=== PATIENT | male | born 1995 | race Caucasian/White ===

== ENCOUNTER 2024-08-08 08:12 | Inpatient (IN) ==
[2024-08-08 08:55] LABS: Basophils # (auto) 0.06 K/uL (0.00-0.20); Basophils % (auto) 0.6 %; Eosinophils # (auto) 0.11 K/uL (0.00-0.50); Eosinophils % (auto) 1.1 %; Hematocrit (blood only) 43.4 % (42.0-52.0); Hemoglobin 14.5 g/dl (14.0-18.0); Immature Granulocytes # (auto) 0.05 K/uL (0.01-0.20); Immature Granulocytes % (auto) 0.5 %; Lymphocytes # (auto) 3.52 K/uL (1.20-3.40); Lymphocytes % (auto) 36.3 %; Mean Corpuscular Hemoglobin 28.4 pg (25.0-34.0); Mean Corpuscular Hgb Conc 33.4 g/dL (32.0-36.0); Mean Corpuscular Volume 85.1 fL (80.0-100.0); Monocytes # (auto) 0.94 K/uL (0.11-0.59); Monocytes % (auto) 9.7 %; Neutrophils # (auto) 5.03 K/uL (1.40-6.50); Neutrophils % (auto) 51.8 %; Platelet Count 393 K/uL (130-400); RDW Coefficient of Variation 12.6 % (11.5-14.5); RDW Standard Deviation 38.8 fL (36.4-46.3); White Blood Count 9.71 K/ul (4.8-10.8)
--- NOTE | 2024-08-08 08:57 | XRay Report ---
XR chest 1V portable CLINICAL HISTORY: Chest pain, nonspecific COMPARISON STUDY: None FINDINGS: Heart size and pulmonary vasculature are normal. No effusion, consolidation, or pneumothora x. IMPRESSION: No acute findings. ACT 112: Negative or not required by law. Electronically signed by: Nima Rain M.D. 08/08/2024 8:56 AM
[2024-08-08 09:12] LABS: BUN Creatinine Ratio 14.3 (10-20); Calcium 9.1 mg/dl (8.6-10.3); Creatinine Clr Calc Pharmacy 211.8 ml/min; Potassium 4.5 mmol/L (3.5-5.1)
--- NOTE | 2024-08-08 09:27 | Emergency Department Note ---
History of Present Illness General Chief Complaint: Chest Pain Stated Complaint: CHEST PAIN Time Seen by Provider: 08/08/24 08:28 History of Present Illness Provider Complaint: chest pain Onset (ago): day(s) 2 Duration: constant Onset: during rest Pain Location: substernal Severity: moderate Maximum Pain Intensity: 0 Quality: + heaviness Relieved By: + nothing Exacerbated By: + nothing Context: no recent illness, no recent surgery, no recent immobilization, no recent travel, no trauma/injury, no new medications or no history of DVT/PE Associated symptoms: no nausea, no vomiting, no dyspnea, no syncope, no palpitations, no fever or no cough Home Medications Medication Instructions Recorded Confirmed Type No Known Home Medications 08/08/24 08/08/24 History Allergies Allergy/AdvReac Type Severity Reaction Status Date / Time Penicillins Allergy Mild RASH Unverified 09/14/09 16:21 Past Med/Surg History Problem List (Updated 08/08/24 @ 12:15 by aRmos Oliveros MD) Non-ST elevation [place] (NSTEMI) (Acute) Social History Smoking Status: Never smoker Preferred Language: Tanzanian Feels Safe at Home: Yes Physical Exam Vital Signs Vital Signs - 24 hr 08/08/24 08:19 08/08/24 08:28 08/08/24 08:35 Temperature 36.3 C L Temperature Source Temporal Artery Scan Pulse Rate 103 H 103 H Pulse Rate [Apical] Pulse Rate from SpO2 Sensor Pulse Rhythm Regular Regular Pulse Rhythm [Apical] Pulse Strength Normal Respiratory Rate 16 16 Respiratory Effort / Characteristics Non-Labored Spontaneous Non-Labored Spontaneous Respiratory Depth Normal Normal Respiratory Pattern Regular Blood Pressure 186/115 H Blood Pressure [Right Arm] Blood Pressure Mean 138 Blood Pressure Mean [Right Arm] Blood Pressure Position Sitting Pulse Oximetry 96 96 Oxygen Delivery Method Room Air Room Air Room Air Sepsis Recent Fever Within 48 Hours No Sepsis New/Unexplained Change in Mental Status N/A Sepsis Action Taken by Nursing No Action Required 08/08/24 08:46 08/08/24 09:39 08/08/24 10:00 Temperature Temperature Source Pulse Rate 103 H 88 Pulse Rate [Apical] 97 H Pulse Rate from SpO2 Sensor 88 Pulse Rhythm Pulse Rhythm [Apical] Regular Pulse Strength Respiratory Rate 16 16 Respiratory Effort / Characteristics Non-Labored Respiratory Depth Normal Respiratory Pattern Regular Blood Pressure 152/76 H Blood Pressure [Right Arm] 169/103 H Blood Pressure Mean 101 Blood Pressure Mean [Right Arm] 125 Blood Pressure Position Pulse Oximetry 95 95 Oxygen Delivery Method Room Air Room Air Sepsis Recent Fever Within 48 Hours Sepsis New/Unexplained Change in Mental Status Sepsis Action Taken by Nursing 08/08/24 10:30 08/08/24 11:00 Temperature Temperature Source Pulse Rate 93 H 88 Pulse Rate [Apical] Pulse Rate from SpO2 Sensor 93 H 89 Pulse Rhythm Pulse Rhythm [Apical] Pulse Strength Respiratory Rate 21 19 Respiratory Effort / Characteristics Respiratory Depth Respiratory Pattern Blood Pressure 174/90 H 170/93 H Blood Pressure [Right Arm] Blood Pressure Mean 103 118 Blood Pressure Mean [Right Arm] Blood Pressure Position Pulse Oximetry 94 95 Oxygen Delivery Method Room Air Sepsis Recent Fever Within 48 Hours Sepsis New/Unexplained Change in Mental Status Sepsis Action Taken by Nursing Physical Exam GENERAL: oriented to person, place, and time. appears well-developed and well- nourished. HENT: Exam performed. - Head: Normocephalic and atraumatic. EYES: Conjunctivae and EOM are normal. Right eye exhibits no discharge. Left eye exhibits no discharge. No scleral icterus. NECK: Normal range of motion. Neck supple. No JVD present. CV: Normal rate, regular rhythm, normal heart sounds and intact distal pulses. There is no peripheral edema. Palpable radial pulses bue. PULM/CHEST: Effort normal and breath sounds normal. No respiratory distress. No stridor. no wheezes. no rales. ABD: The abdomen is soft and morbidly obese. There is no tenderness. NEURO: Motor and sensation grossly intact. SKIN: Skin is warm and dry. He is diaphoretic. PSYCH: normal mood and affect. Behavior is normal. Judgment and thought content normal. Course Course 08: The patient was evaluated in room B11. A complete history and physical exam was performed Cardiac monitoring: An order was placed for continuous cardiac monitoring. The monitor shows a rate of 100 with sinus rhythm interpreted by me 0942: Vital signs stable. Patient currently reporting no chest pain. No diarrhea pheresis now. Patient was strongly recommended for inpatient observation for chest pain rule out ACS but adamantly declined. Will conduct delta troponin, if positive will admit. If no significant increase patient will be discharged to follow-up with outpatient cardiology. 1208: Vital signs stable. Patient reporting no chest pain at this time. Delta troponin is 59.5. Discussed case with Dr. Aranda on-call cardiology and we both agreed to start heparin on this patient for NSTEMI. [facility] who states he will admit the patient. Administered Medications Discontinued Medications Aspirin (Aspirin 81 Mg Chew) 324 mg PO NOW STA Stop: 08/08/24 11:40 Last Admin: 08/08/24 11:44 Dose: 324 mg Documented By: BEVERLY Medical Decision Making Laboratory Data Attestation: I reviewed the patient's lab results. 08/08/24 08:44 08/08/24 08:44 Labs: Lab Results 08/08/24 08/08/24 Range/Units 08:44 10:46 WBC 9.71 (4.8-10.8) K/ul RBC 5.10 (4.70-6.10) M/uL Hgb 14.5 (14.0-18.0) g/dl Hct 43.4 (42.0-52.0) % MCV 85.1 (80.0-100.0) fL MCH 28.4 (25.0-34.0) pg MCHC 33.4 (32.0-36.0) g/dL RDW Std Deviation 38.8 (36.4-46.3) fL RDW Coeff of Zackery 12.6 (11.5-14.5) % Plt Count 393 (130-400) K/uL MPV 10.0 (9.4-12.4) fL Immature Gran % (Auto) 0.5 % Neut % (Auto) 51.8 % Lymph % (Auto) 36.3 % Keith % (Auto) 9.7 % Eos % (Auto) 1.1 % Baso % (Auto) 0.6 % Neut # (Auto) 5.03 (1.40-6.50) K/uL Lymph # (Auto) 3.52 H (1.20-3.40) K/uL Keith # (Auto) 0.94 H (0.11-0.59) K/uL Eos # (Auto) 0.11 (0.00-0.50) K/uL Baso # (Auto) 0.06 (0.00-0.20) K/uL Immature Gran # (Auto) 0.05 (0.01-0.20) K/uL PT 9.8 (9.0-12.0) Seconds INR 0.9 (0.9-1.1) APTT 28 (21-31) Seconds PTT Ratio 1.0 D-Dimer 230 (0-500) ug/L FEU Sodium 138 (136-145) mmol/L Potassium 4.5 (3.5-5.1) mmol/L Chloride 104 (98-107) mmol/L Carbon Dioxide 29 (21-32) mmol/L Anion Gap 5 (3-11) BUN 11 (6-23) mg/dl Creatinine 0.77 (0.6-1.4) mg/dl Est Cr Clr Drug Dosing 211.8 ml/min eGFR 122.75 BUN/Creatinine Ratio 14.3 (10-20) Glucose 227 H (70-99(Fasting)) mg/dl Calcium 9.1 (8.6-10.3) mg/dl Troponin I High Sens 18.0 59.5 H* D (0-20) pg/ml Lipase 31 (11-82) U/L Imaging Data Chest x-ray: Attestation: I personally reviewed and interpreted this imaging study as follows: My impression: Chest x-ray negative. Airway clear. No pneumothorax. No consolidation. No cardiomegaly or cephalization.. No free air under the diaphragm. No fractures of the skeletal structures. Radiologist's impression: Chest X-Ray 08/08/24 08:28 XR chest 1V portable CLINICAL HISTORY: Chest pain, nonspecific COMPARISON STUDY: None FINDINGS: Heart size and pulmonary vasculature are normal. No effusion, consolidation, or pneumothorax. IMPRESSION: No acute findings. ACT 112: Negative or not required by law. Electronically signed by: Nima Rain M.D. 08/08/2024 8:56 AM ECG Data Attestation: I personally reviewed and interpreted this ECG as follows: Rate (beats per minute): 100 Rhythm: normal sinus Findings: no ST depression, no ST elevation or no prolonged QT MDM Narrative 0828: The patient was evaluated in room B11. A complete history and physical exam was performed Cardiac monitoring: An order was placed for continuous cardiac monitoring. The monitor shows a rate of 100 with sinus rhythm interpreted by me 0942: Vital signs stable. Patient currently reporting no chest pain. No diarrhea pheresis now. Patient was strongly recommended for inpatient observation for chest pain rule out ACS but adamantly declined. Will conduct delta troponin, if positive will admit. If no significant increase patient will be discharged to follow-up with outpatient cardiology. 1208: Vital signs stable. Patient reporting no chest pain at this time. Delta troponin is 59.5. Discussed case with Dr. Aranda on-call cardiology and we both agreed to start heparin on this patient for NSTEMI. Discussed case with [facility] team Dr. Delgado who states he will admit the patient. Impression & Plan Non-ST elevation [place] (NSTEMI) Critical Care Time Critical Care Time: Yes Total Critical Care Time: 41 I have personally spent greater than 41 minutes of critical care time in the direct management of this patient. This includes bedside care, interpretation of diagnostic studies, and testing, discussion with consultants, patient, and family members, and other required patient management activities. This 41 minutes is in excess of all separately billable procedures. Discharge Plan Visit Data Chief Complaint: Chest Pain Stated Complaint: CHEST PAIN ED Provider: Ramos Oliveros Discharge Problem: Non-ST elevation [place] (NSTEMI) Patient Disposition: Admitted As Inpatient Forms Stand Alone Forms: [employer] Prescriptions Prescriptions: No Action No Known Home Medications Referrals Referrals: PCP,NO [Primary Care Provider] -
[2024-08-08 09:30] LABS: D Dimer 230 ug/L FEU (0-500); INR 0.9 (0.9-1.1); Partial Thromboplastin Time 28 Seconds (21-31); Prothrombin Time 9.8 Seconds (9.0-12.0)
--- NOTE | 2024-08-08 11:16 | Electrocardiogram Report ---
Test Reason : Blood Pressure : */* mmHG Vent. Rate : 100 BPM Atrial Rate : 100 BPM P-R Int : 136 ms QRS Dur : 114 ms QT Int : 360 ms P-R-T Axes : 28 13 77 degrees QTcB Int : 464 ms Normal sinus rhythm Incomplete right bundle branch block Nonspecific ST and T wave abnormality Abnormal ECG No previous ECGs available Confirmed by Srini Mari ([id number]) on 08/08/2024 11:16:14 AM Referred By: REFERRED SELF Confirmed By: Srini Mari
[2024-08-08] MEDS: ASPIRIN 81 MG CHEW PO STA (11:44)
[2024-08-08] MEDS ORDERED: ACETAMINOPHEN 325 MG TAB PO PRN (12:18)
[2024-08-08] MEDS ORDERED: ZOLPIDEM TARTRATE 5 MG TAB PO PRN (12:18)
[2024-08-08] MEDS ORDERED: NITROGLYCERIN SL 0.4 MG/TAB TAB SL PRN (12:18)
--- NOTE | 2024-08-08 12:27 | History & Physical Report ---
Date of Service August 08, 2024 Assessment & Plan (1) Non-ST elevation [place] (NSTEMI): Plan #NSTEMI #Htn emergency vs. urgency -consult cardiology, thus far has indicated heparin ggt -stat EKG for new/changing cp -tele -nitro for chest pain -trend trops to peak -prn hydralazine >180/100 #Hyperglycemia -a1c, lipids IVF, cardiac diet, NPO at [place] On therapeutic a/c, SCDs History of Present Illness Primary Care Provider: NO PCP 29M pmh morbid obesity who presents to the ED with chest pain. Patient states 2 days ago he awoke with chest pain, which lasted around 1-5 minutes and self-resolved. This occured twice more in the last two days, once exertionally, another time non-exertionally and as a result he presented to the hospital. These episodes have never occured before, and he has never seen a knot saw operator before for any reason. He has no known fhx of cardiac dx, no current drug use. No palpitations, sob, fever, chills, other symptoms currently. Allergies Allergy/AdvReac Type Severity Reaction Status Date / Time Penicillins Allergy Mild RASH Unverified 09/14/09 16:21 Home Medications Medication Instructions Recorded Confirmed Type No Known Home Medications 08/08/24 08/08/24 History Past Med/Surg History Problem List (Updated 08/08/24 @ 12:15 by Ramos Oliveros MD) Non-ST elevation [place] (NSTEMI) (Acute) Social History Smoking Status: Never smoker Preferred Language: Malay Feels Safe at Home: Yes Review of Systems Constitutional: no fever and no chills Respiratory: no cough, no dyspnea and no pain on inspiration Cardiovascular: + chest pain and + chest pain at rest; n o dyspnea on exertion, no palpitations and no edema Physical Exam Constitutional: WD/WN, vitals as above Respiratory: normal respiratory effort, lungs clear to auscultation Cardiovascular: RRR, no murmur, no edema Results & Data Results & Data Vital Signs (Past 12 Hours) Vital Signs Temp Pulse Pulse Resp BP BP Pulse Ox 08/08/24 11:00 88 19 170/93 H 95 08/08/24 10:30 93 H 21 174/90 H 94 08/08/24 10:00 88 16 152/76 H 95 08/08/24 09:39 97 H 16 169/103 H 95 08/08/24 08:46 103 H 08/08/24 08:35 08/08/24 08:28 103 H 16 96 08/08/24 08:19 36.3 C L 103 H 16 186/115 H 96 O2 Del Method 08/08/24 11:00 Room Air 08/08/24 10:30 08/08/24 10:00 Room Air 08/08/24 09:39 Room Air 08/08/24 08:46 08/08/24 08:35 Room Air 08/08/24 08:28 Room Air 08/08/24 08:19 Room Air Laboratory Results Abnormal lab results 08/08/24 08/08/24 Range/Units 08:44 10:46 Lymph # (Auto) 3.52 H (1.20-3.40) K/uL [place] # (Auto) 0.94 H (0.11-0.59) K/uL Glucose 227 H (70-99(Fasting)) mg/dl Troponin I High Sens 59.5 H* D (0-20) pg/ml Diagnostic Findings Chest X-Ray 08/08/24 08:28 XR chest 1V portable CLINICAL HISTORY: Chest pain, nonspecific COMPARISON STUDY: None FINDINGS: Heart size and pulmonary vasculature are normal. No effusion, consolidation, or pneumothorax. IMPRESSION: No acute findings. ACT 112: Negative or not required by law. Electronically signed by: Nima Rain M.D. 08/08/2024 8:56 AM Code Status & VTE Plan VTE Prophylaxis Plan VTE Prophylaxis will be ordered: No Reason for no VTE drug order: Contraindicated
[2024-08-08] MEDS: SODIUM CHLORIDE 0.9% 1,000 ML IV SCH (12:45)
[2024-08-08] MEDS: HEPARIN 25000 UNIT/500 ML D5W 25,000 UNITS/500 ML BAG IV SCH (12:47)
[2024-08-08] MEDS: Heparin IV Adult Wt-Based Low-Dose w/ INITIAL Bolus Protocol IV STA (12:47)
[2024-08-08] MEDS: HEPARIN SOD (PORCINE) 1000 UNIT/ML IV ONE ×2 (12:47→20:03)
[2024-08-08] MEDS: hydrALAZINE HCL 20 MG/ML VIAL IV PRN (13:14)
[2024-08-08] MEDS ORDERED: hydrALAZINE HCL 20 MG/ML VIAL IV PRN (14:19)
[2024-08-08] MEDS: LOSARTAN POTASSIUM 50 MG TAB PO SCH (15:23)
[2024-08-08 19:21] LABS: ANTI-Xa, UFH(UnfractionatedHep < 0.10 IU/ml (0.3-0.7)
[2024-08-09] MEDS: HEPARIN SOD (PORCINE) 1000 UNIT/ML IV ONE ×3 (03:00→17:23)
[2024-08-09 06:15] LABS: Hematocrit (blood only) 42.1 % (42.0-52.0); Hemoglobin 13.9 g/dl (14.0-18.0); Mean Corpuscular Hemoglobin 28.3 pg (25.0-34.0); Mean Corpuscular Volume 85.7 fL (80.0-100.0); Mean Platelet Volume 10.2 fL (9.4-12.4); Platelet Count 341 K/uL (130-400); RDW Coefficient of Variation 12.9 % (11.5-14.5); RDW Standard Deviation 39.8 fL (36.4-46.3); Red Blood Count 4.91 M/uL (4.70-6.10)
[2024-08-09 06:33] LABS: Albumin Globulin Ratio 1.4 (0.9-2); Albumin Level 4.1 gm/dl (3.4-5.0); BUN Creatinine Ratio 15.4 (10-20); Bilirubin,Total 0.4 mg/dl (0.2-1.0); Calcium 8.9 mg/dl (8.6-10.3); Creatinine Clr Calc Pharmacy 253.1 ml/min; Total Protein 7.1 gm/dl (6.0-8.3)
[2024-08-09 06:43] LABS: Prothrombin Time 10.4 Seconds (9.0-12.0)
[2024-08-09 07:31] LABS: Estimated Average Glucose 146 mg/dl; Hemoglobin A1C 6.7 % (4.5-5.6)
[2024-08-09] MEDS: ASPIRIN 81 MG ECTAB PO SCH (08:07)
[2024-08-09] MEDS: ATORVASTATIN 40 MG TAB PO SCH (08:07)
[2024-08-09] MEDS: METOPROLOL SUCC 25MG EXT REL TAB PO SCH (08:07)
--- NOTE | 2024-08-09 08:49 | Hospitalist Progress Note ---
Date of Service August 09, 2024 Assessment & Plan (1) Non-ST elevation [place] (NSTEMI): Plan NSTEMI Htn emergency vs. urgency Pt was started on IV heparin in ED, will cont. started losartan for BP control started ASA, metoprolol, statin cont. to monitor closely on telemetry Currently pt is feeling well, chest pain free, no NORWOOD, no shortness of breath Cardiology consulted and discussed with, echo also obtained - per cardiology - " initial concern is that the patient has presented with hypertensive urgency. Troponin however is mildly elevated with relatively flat trend and he did however have chest discomfort. Will work on optimizing blood pressure prior to consideration of further ischemic workup." Hyperglycemia A1c 6.7% - will need to follow up as outpt, lipids LDL 130 - started on statin per cardiology DVT ppx - iv heparin Admission and Anticipated Discharge Date Admission Date: August 08, 2024 Subjective Pt seen in follow up of NSTEMI IV heparin started on admission Currently lying in bed in NAD currently denies any chest pain or shortness of breath, denies dizziness, palpitations, lightheadedness, no nausea, or abd. pain, no NORWOOD Pt's girlfriend present at the bedside Review of Systems Review of Systems: All systems reviewed & are unremarkable except as noted in Subjective Physical Exam Physical Exam: General: morbidly obese young M in NAD HEENT: NC/AT, EOMI, moist mucous membranes Lungs: clear to auscultation b/l, no wheezing Cardiac Exam: regular heart sounds, no murmurs, no jugular venous distention Abdomen: abdomen soft, non-tender, + obese Extremities: no LE edema, moves extremities Neuro: awake, alert, answers appropriately, no facial asymmetry, moves extremities Results & Data Results & Data Vital Signs (Past 12 Hours) Vital Signs Temp Pulse Pulse Resp BP BP Pulse Ox 08/09/24 07:59 36.5 C 80 20 181/81 H 97 08/09/24 07:12 66 08/09/24 05:15 85 08/09/24 02:32 36.5 C 70 18 131/66 95 08/08/24 22:38 36.7 C 83 18 173/90 H 94 O2 Del Method 08/09/24 07:59 Room Air 08/09/24 07:12 08/09/24 05:15 08/09/24 02:32 Room Air 08/08/24 22:38 Room Air Laboratory Results 08/09/24 08/09/24 08/08/24 Range/Units 05:22 01:18 18:30 WBC 9.60 (4.8-10.8) K/ul RBC 4.91 (4.70-6.10) M/uL Hgb 13.9 L (14.0-18.0) g/dl Hct 42.1 (42.0-52.0) % MCV 85.7 (80.0-100.0) fL MCH 28.3 (25.0-34.0) pg MCHC 33.0 (32.0-36.0) g/dL RDW Std Deviation 39.8 (36.4-46.3) fL RDW Coeff of Zackery 12.9 (11.5-14.5) % Plt Count 341 (130-400) K/uL MPV 10.2 (9.4-12.4) fL Immature Gran % (Auto) % Neut % (Auto) % Lymph % (Auto) % Martin % (Auto) % Eos % (Auto) % Baso % (Auto) % Neut # (Auto) (1.40-6.50) K/uL Lymph # (Auto) (1.20-3.40) K/uL Martin # (Auto) (0.11-0.59) K/uL Eos # (Auto) (0.00-0.50) K/uL Baso # (Auto) (0.00-0.20) K/uL Immature Gran # (Auto) (0.01-0.20) K/uL PT 10.4 (9.0-12.0) Seconds INR 1.0 (0.9-1.1) APTT (21-31) Seconds PTT Ratio D-Dimer (0-500) ug/L FEU Heparin Anti-Xa, Unfract 0.10 L < 0.10 L (0.3-0.7) IU/ml Sodium 139 (136-145) mmol/L Potassium 4.0 (3.5-5.1) mmol/L Chloride 103 (98-107) mmol/L Carbon Dioxide 30 (21-32) mmol/L Anion Gap 6 (3-11) BUN 10 (6-23) mg/dl Creatinine 0.65 (0.6-1.4) mg/dl Est Cr Clr Drug Dosing 253.1 ml/min eGFR 129.19 BUN/Creatinine Ratio 15.4 (10-20) Glucose 131 H (70-99(Fasting)) mg/dl Estimat Average Glucose 146 mg/dl Hemoglobin A1c 6.7 H (4.5-5.6) % Calcium 8.9 (8.6-10.3) mg/dl Total Bilirubin 0.4 (0.2-1.0) mg/dl AST 18 (13-39) U/L ALT 36 (7-52) U/L Alkaline Phosphatase 76 (34-104) U/L Troponin I High Sens (0-20) pg/ml Total Protein 7.1 (6.0-8.3) gm/dl Albumin 4.1 (3.4-5.0) gm/dl Globulin 3.0 (2.5-4.0) gm/dl Albumin/Globulin Ratio 1.4 (0.9-2) Triglycerides 231 H (0-150) mg/dl Cholesterol 211 H (0-200) mg/dl LDL Cholesterol, Calc 130 mg/dl VLDL Cholesterol, Calc 46 H (0-30) mg/dl HDL Cholesterol 35 mg/dl Cholesterol/HDL Ratio 6.0 H (0-5) Lipase (11-82) U/L 08/08/24 08/08/24 08/08/24 Range/Units 14:43 12:55 10:46 WBC (4.8-10.8) K/ul RBC (4.70-6.10) M/uL Hgb (14.0-18.0) g/dl Hct (42.0-52.0) % MCV (80.0-100.0) fL MCH (25.0-34.0) pg MCHC (32.0-36.0) g/dL RDW Std Deviation (36.4-46.3) fL RDW Coeff of Zackery (11.5-14.5) % Plt Count (130-400) K/uL MPV (9.4-12.4) fL Immature Gran % (Auto) % Neut % (Auto) % Lymph % (Auto) % Martin % (Auto) % Eos % (Auto) % Baso % (Auto) % Neut # (Auto) (1.40-6.50) K/uL Lymph # (Auto) (1.20-3.40) K/uL Martin # (Auto) (0.11-0.59) K/uL Eos # (Auto) (0.00-0.50) K/uL Baso # (Auto) (0.00-0.20) K/uL Immature Gran # (Auto) (0.01-0.20) K/uL PT (9.0-12.0) Seconds INR (0.9-1.1) APTT (21-31) Seconds PTT Ratio D-Dimer (0-500) ug/L FEU Heparin Anti-Xa, Unfract (0.3-0.7) IU/ml Sodium (136-145) mmol/L Potassium (3.5-5.1) mmol/L Chloride (98-107) mmol/L Carbon Dioxide (21-32) mmol/L Anion Gap (3-11) BUN (6-23) mg/dl Creatinine (0.6-1.4) mg/dl Est Cr Clr Drug Dosing ml/min eGFR BUN/Creatinine Ratio (10-20) Glucose (70-99(Fasting)) mg/dl Estimat Average Glucose mg/dl Hemoglobin A1c (4.5-5.6) % Calcium (8.6-10.3) mg/dl Total Bilirubin (0.2-1.0) mg/dl AST (13-39) U/L ALT (7-52) U/L Alkaline Phosphatase (34-104) U/L Troponin I High Sens 52.5 H* D 63.4 H* 59.5 H* D (0-20) pg/ml Total Protein (6.0-8.3) gm/dl Albumin (3.4-5.0) gm/dl Globulin (2.5-4.0) gm/dl Albumin/Globulin Ratio (0.9-2) Triglycerides (0-150) mg/dl Cholesterol (0-200) mg/dl LDL Cholesterol, Calc mg/dl VLDL Cholesterol, Calc (0-30) mg/dl HDL Cholesterol mg/dl Cholesterol/HDL Ratio (0-5) Lipase (11-82) U/L 08/08/24 Range/Units 08:44 WBC 9.71 (4.8-10.8) K/ul RBC 5.10 (4.70-6.10) M/uL Hgb 14.5 (14.0-18.0) g/dl Hct 43.4 (42.0-52.0) % MCV 85.1 (80.0-100.0) fL MCH 28.4 (25.0-34.0) pg MCHC 33.4 (32.0-36.0) g/dL RDW Std Deviation 38.8 (36.4-46.3) fL RDW Coeff of Zackery 12.6 (11.5-14.5) % Plt Count 393 (130-400) K/uL MPV 10.0 (9.4-12.4) fL Immature Gran % (Auto) 0.5 % Neut % (Auto) 51.8 % Lymph % (Auto) 36.3 % Martin % (Auto) 9.7 % Eos % (Auto) 1.1 % Baso % (Auto) 0.6 % Neut # (Auto) 5.03 (1.40-6.50) K/uL Lymph # (Auto) 3.52 H (1.20-3.40) K/uL Martin # (Auto) 0.94 H (0.11-0.59) K/uL Eos # (Auto) 0.11 (0.00-0.50) K/uL Baso # (Auto) 0.06 (0.00-0.20) K/uL Immature Gran # (Auto) 0.05 (0.01-0.20) K/uL PT 9.8 (9.0-12.0) Seconds INR 0.9 (0.9-1.1) APTT 28 (21-31) Seconds PTT Ratio 1.0 D-Dimer 230 (0-500) ug/L FEU Heparin Anti-Xa, Unfract (0.3-0.7) IU/ml Sodium 138 (136-145) mmol/L Potassium 4.5 (3.5-5.1) mmol/L Chloride 104 (98-107) mmol/L Carbon Dioxide 29 (21-32) mmol/L Anion Gap 5 (3-11) BUN 11 (6-23) mg/dl Creatinine 0.77 (0.6-1.4) mg/dl Est Cr Clr Drug Dosing 211.8 ml/min eGFR 122.75 BUN/Creatinine Ratio 14.3 (10-20) Glucose 227 H (70-99(Fasting)) mg/dl Estimat Average Glucose mg/dl Hemoglobin A1c (4.5-5.6) % Calcium 9.1 (8.6-10.3) mg/dl Total Bilirubin (0.2-1.0) mg/dl AST (13-39) U/L ALT (7-52) U/L Alkaline Phosphatase (34-104) U/L Troponin I High Sens 18.0 (0-20) pg/ml Total Protein (6.0-8.3) gm/dl Albumin (3.4-5.0) gm/dl Globulin (2.5-4.0) gm/dl Albumin/Globulin Ratio (0.9-2) Triglycerides (0-150) mg/dl Cholesterol (0-200) mg/dl LDL Cholesterol, Calc mg/dl VLDL Cholesterol, Calc (0-30) mg/dl HDL Cholesterol mg/dl Cholesterol/HDL Ratio (0-5) Lipase 31 (11-82) U/L Medications Administered Current Inpatient Medications Acetaminophen (Acetaminophen 325 Mg Tab) 650 mg PO Q4H PRN PRN Reason: Pain or Fever Stop: 09/07/24 12:17 Aspirin (Aspirin 81 Mg Ectab) 81 mg PO [facility] Stop: 09/08/24 08:59 Last Admin: 08/09/24 08:07 Dose: 81 mg Atorvastatin Calcium (Atorvastatin 40 Mg Tab) 40 mg PO [facility] Stop: 09/08/24 08:59 Last Admin: 08/09/24 08:07 Dose: 40 mg Hydralazine HCl (Hydralazine Hcl 20 Mg/Ml Vial) 10 mg IV Q4H PRN PRN Reason: hypertension Stop: 09/07/24 14:18 Heparin Sodium/Dextrose (Heparin 45404 Unit/500 Ml D5w) 25,000 units in 500 mls @ 30 mls/hr IV .[id number] [facility]; Protocol Stop: 09/07/24 12:14 Last Admin: 08/09/24 08:06 Dose: 1,500 units/hr, 30 mls/hr Losartan Potassium (Losartan Potassium 50 Mg Tab) 50 mg PO [facility] Stop: 09/07/24 14:29 Last Admin: 08/09/24 08:06 Dose: 50 mg Metoprolol Succinate (Metoprolol Succ 25mg Ext Rel Tab) 25 mg PO QAM CINTHIA Stop: 09/08/24 08:59 Last Admin: 08/09/24 08:07 Dose: 25 mg Nitroglycerin (Nitroglycerin Sl 0.4 Mg/Tab Tab) 0.4 mg SL Q5M PRN PRN Reason: Chest Pain Stop: 09/07/24 12:17 Zolpidem Tartrate (Zolpidem Tartrate 5 Mg Tab) 5 mg PO HS PRN PRN Reason: Sleep Stop: 09/07/24 12:17
[2024-08-09 09:36] LABS: ANTI-Xa, UFH(UnfractionatedHep 0.12 IU/ml (0.3-0.7)
--- NOTE | 2024-08-09 10:31 | Cardiology Consultation ---
Date of Consultation August 09, 2024 Assessment & Plan (1) Hypertensive urgency: (2) Chest pain: (3) Troponin I above reference range: * At present, patient is asymptomatic. Yesterday's treatment included 50 mg of oral losartan and 5 mg of IV hydralazine. He also received unfractioned heparin infusion and normal saline. Blood pressure has remained elevated. This morning he received losartan 50 mg as well as metoprolol succinate 25 mg at 8 AM, repeat vital signs are currently pending. At present we will continue losartan plus metoprolol and will titrate accordingly depending upon vital signs. Continue aspirin, atorvastatin added with noted minimally elevated LDL cholesterol of 130 mg/dL. My initial concern is that the patient has presented with hypertensive urgency. Troponin however is mildly elevated with relatively flat trend and he did however have chest discomfort. At present we will advance diet. Will work on optimizing blood pressure prior to consideration of further ischemic workup. History of Present Illness Attending Physician: Rosalio Cooper MD History of Present Illness Mr Diaz is a 29 year old male seen in cardiology consultation per the request of Dr Delgado for the evaluation of chest pain and hypertensive urgency. The patient was seen by the undersigned in room 461-2. He was accompanied by his significant other. Feeling well during my assessment at around 9:30 AM on 08/09/2024. He states he presented to the hospital due to concerns of chest discomfort that occurred at rest on Friday and Friday morning and had also occ urred during sexual intercourse on Friday evening. He states that prior to these 2 days he has been performing his activities of daily living without any perceived symptoms including no chest discomfort. His blood pressure was elevated on presentation to the emergency department with initial vital signs having been taken yesterday for at 8:19 AM including blood pressure of 186/115 and it was as high as 203/102 at 12:30 PM yesterday. The patient does not go to the doctor regularly. Per review of his outpatient [facility] chart, I see 1 previous blood pressure reading recorded at the time of the convenient care visit a month ago on 07/09/2024 when he presented with cough and cold symptoms and his vital signs included a heart rate of 108 bpm, blood pressure 180/82, weight 356 pounds. At the time of that visit, he denied ever having a definite past history of hypertension but recalls being told that his blood pressure was high when he was evaluated for COVID a few years ago without intervening follow up. 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 He states he uses the appropriate protective equipment for at this sure Allergies Allergy/AdvReac Type Severity Reaction Status Date / Time Penicillins Allergy Mild RASH Unverified 09/14/09 16:21 Home Medications Medication Instructions Recorded Confirmed Type No Known Home Medications 08/08/24 08/08/24 History Patient History Social History Smoking Status: Never smoker Tobacco Type: Smokeless Tobacco (Dip or Chew) Do You Dip or Chew Tobacco: Yes; Tobacco Cessation Education Requested by Patient: No Hx Alcohol Use: Yes Alcohol type: beer Hx Substance Use: No Preferred Language: Croatian Communication Ability: Effective Credentialing Manager Required: No Beliefs That Will Affect Care: None Current Living Situation: Other Current Living Situation Comment: Lives with girlfriend Feels Safe at Home: Yes Safety Concerns: Feels Safe At This Time Assistive Devices: Glasses Review of Systems Review of Systems: All systems reviewed & are unremarkable except as noted in HPI & below Physical Exam Physical Exam: General: no acute distress and stated age Eyes: conjunctiva are pink and non-injected, sclera clear Neck: normal jugular venous pulse, no hepatojugular reflux Chest: normal shape and normal respiratory effort Lungs: clear to auscultation and percussion Cardiac Exam: - regular heart sounds, no murmurs, rubs, or gallops, no jugular venous distention Abdomen: abdomen soft, non-tender, no abnormal masses and no hepatosplenomegaly Musculoskeletal: no gait disturbance, no weakness Extremities: no edema and no cyanosis Neuro:awake, conversant, follows commands, no focal motor deficits Psych: appropriate affect and insight. Results & Data Vital Signs (Past 12 Hours) Vital Signs Temp Pulse Pulse Resp BP BP Pulse Ox 08/09/24 07:59 36.5 C 80 20 181/81 H 97 08/09/24 07:12 66 08/09/24 05:15 85 08/09/24 02:32 36.5 C 70 18 131/66 95 08/08/24 22:38 36.7 C 83 18 173/90 H 94 O2 Del Method 08/09/24 07:59 Room Air 08/09/24 07:12 08/09/24 05:15 08/09/24 02:32 Room Air 08/08/24 22:38 Room Air Laboratory Results Cardiac Enzymes 08/08/24 08/08/24 08/08/24 Range/Units 10:46 12:55 14:43 AST (13-39) U/L Troponin I High Sens 59.5 H* D 63.4 H* 52.5 H* D (0-20) pg/ml 08/09/24 Range/Units 05:22 AST 18 (13-39) U/L Troponin I High Sens (0-20) pg/ml Coagulation 08/09/24 Range/Units 05:22 PT 10.4 (9.0-12.0) Seconds Lipids 08/09/24 Range/Units 05:22 Triglycerides 231 H (0-150) mg/dl Cholesterol 211 H (0-200) mg/dl HDL Cholesterol 35 mg/dl Cholesterol/HDL Ratio 6.0 H (0-5) CBC 08/09/24 Range/Units 05:22 WBC 9.60 (4.8-10.8) K/ul RBC 4.91 (4.70-6.10) M/uL Hgb 13.9 L (14.0-18.0) g/dl Hct 42.1 (42.0-52.0) % Plt Count 341 (130-400) K/uL Comprehensive Metabolic Panel 08/09/24 Range/Units 05:22 Sodium 139 (136-145) mmol/L Potassium 4.0 (3.5-5.1) mmol/L Chloride 103 (98-107) mmol/L Carbon Dioxide 30 (21-32) mmol/L BUN 10 (6-23) mg/dl Creatinine 0.65 (0.6-1.4) mg/dl Glucose 131 H (70-99(Fasting)) mg/dl Calcium 8.9 (8.6-10.3) mg/dl AST 18 (13-39) U/L ALT 36 (7-52) U/L Alkaline Phosphatase 76 (34-104) U/L Total Protein 7.1 (6.0-8.3) gm/dl Albumin 4.1 (3.4-5.0) gm/dl Intake and Output 08/08/24 08/09/24 08/09/24 22:59 06:59 14:59 Intake Total 1067.333 / 1458.433 191.1 / 1458.433 153.0 / 153.0 Balance 1067.333 / 1458.433 191.1 / 1458.433 153.0 / 153.0 Intake: IV 137.333 / 528.433 191.1 / 528.433 153.0 / 153.0 Heparin 99572 Unit/500 ml D5w 137.333 / 328.433 191.1 / 328.433 153.0 / 153.0 25,000 units In 500 ml @ 1,500 UNITS/HR 30 mls/hr IV .[id number] [facility] Rx#:[id number] Oral 930 / 930 Other: Other Intake Source npo # Unmeasured Voids 1 Weight 165.6 kg Diagnostic Findings Initial EKG was performed on 08/08/2024 at 8:33 AM and revealed sinus tachycardia at 100 bpm with incomplete right bundle branch block. Mild nonspecific ST-T wave abnormalities noted. No previous tracings available for comparison. Repeat EKG performed 08/09/2024 interpreted dependently: Sinus rhythm at 77 bpm, incomplete right bundle branch block, nonspecific repolarization abnormalities have improved. Summary of radiology report of chest x-ray performed: No acute cardiopulmonary findings Echocardiogram performed 08/09/2024 and interpreted dependently: The study is technically limited due to patient characteristics and poor acoustic windows. The left ventricle was suboptimally visualized despite the administration of the ultrasound enhancement agent Definity, however no regional wall motion abnormalities were noted with noted low normal LVEF in the range of 50 to 55%. The valvular structures were poorly visualized, without any Doppler evidence of significant stenosis or regurgitation. No pericardial effusion was observed Left ventricular diastolic function appears normal on technically limited Doppler assessment
[2024-08-09] MEDS: amLODIPine BESYLATE 5 MG TAB PO SCH (10:56)
--- NOTE | 2024-08-09 11:17 | Electrocardiogram Report ---
Test Reason : Blood Pressure : */* mmHG Vent. Rate : 77 BPM Atrial Rate : 77 BPM P-R Int : 136 ms QRS Dur : 110 ms QT Int : 392 ms P-R-T Axes : 16 -6 32 degrees QTcB Int : 443 ms Normal sinus rhythm Incomplete right bundle branch block Borderline ECG When compared with ECG of 08-Aug-2024 08:33, Nonspecific T wave abnormality no longer evident in Lateral leads Confirmed by Dick Peterson ([id number]) on 08/09/2024 11:16:48 AM Referred By: REFERRED SELF Confirmed By: Dick Peterson
[2024-08-09] MEDS: SPIRONOLACTONE 12.5 MG TAB PO SCH (12:19)
[2024-08-09 16:24] LABS: ANTI-Xa, UFH(UnfractionatedHep 0.15 IU/ml (0.3-0.7)
[2024-08-09 23:38] LABS: ANTI-Xa, UFH(UnfractionatedHep < 0.10 IU/ml (0.3-0.7)
[2024-08-10 00:41] LABS: Creatinine Urine Random 198.3 mg/dl; Protein Creatinine Ratio Urine 0.1 (0-0.2)
[2024-08-10 05:45] LABS: Hematocrit (blood only) 42.7 % (42.0-52.0); Hemoglobin 14.1 g/dl (14.0-18.0); Mean Corpuscular Volume 84.9 fL (80.0-100.0); Platelet Count 343 K/uL (130-400); RDW Coefficient of Variation 12.9 % (11.5-14.5); RDW Standard Deviation 39.4 fL (36.4-46.3); Red Blood Count 5.03 M/uL (4.70-6.10); White Blood Count 9.95 K/ul (4.8-10.8)
[2024-08-10 06:02] LABS: BUN Creatinine Ratio 19.1 (10-20); Calcium 9.1 mg/dl (8.6-10.3); Creatinine Clr Calc Pharmacy 239.3 ml/min; Phosphorus 4.5 mg/dl (2.5-4.9); Potassium 4.1 mmol/L (3.5-5.1)
[2024-08-10] MEDS: ENOXAPARIN INJ 40 MG/0.4 ML SYR SQ SCH (08:25)
--- NOTE | 2024-08-10 11:08 | Cardiology Progress Note ---
Date of Service August 10, 2024 Assessment & Plan (1) Hypertensive urgency: (2) Chest pain: (3) Troponin I above reference range: Plan: BP has trended toward improvement on metoprolol succinate 25 mg daily Losartan 50 mg daily amlodipine 5 mg daily spironolactone 12.5 mg daily. Continue aspirin, atorvastatin added with noted minimally elevated LDL cholesterol of 130 mg/dL. Mild elevation in troponin perhaps myocardial strain in setting of hypertensive urgency. Normal resting wall motion and LVEF on technically limited echo. No ischemic EKG changes. Plan for 2 day pharm nuclear stress, Day 1 images today, 08/10, Day 2 on 08/11. UF heparin gtt discontinued. DVT prophylaxis dose lovenox started. Pt encouraged to ambulate. Admission and Anticipated Discharge Date Admission Date: August 08, 2024 Subjective Patient seen in cardiology follow up of chest pain and elevated blood pressure. Denies subjective complaint. Telemetry reveals Sr in the 60s Physical Exam Physical Exam: General: no acute distress and stated age Eyes: conjunctiva are pink and non-injected, sclera clear Neck: normal jugular venous pulse, no hepatojugular reflux Chest: normal shape and normal respiratory effort Lungs: clear to auscultation and percussion Cardiac Exam: - regular heart sounds, no murmurs, rubs, or gallops, no jugular venous distention Abdomen: abdomen soft, non-tender, no abnormal masses and no hepatosplenomegaly Musculoskeletal: no gait disturbance, no weakness Extremities: no edema and no cyanosis Neuro:awake, conversant, follows commands, no focal motor deficits Psych: appropriate affect and insight. Results & Data Vital Signs (Past 12 Hours) Vital Signs Temp Pulse Pulse Pulse Resp BP BP 08/10/24 08:14 36.5 C 74 22 171/84 H 08/10/24 08:00 63 08/10/24 03:10 36.9 C 75 20 142/88 H 08/10/24 00:38 37 C 81 18 144/88 H Pulse Ox O2 Del Method 08/10/24 08:14 95 Room Air 08/10/24 08:00 08/10/24 03:10 94 Room Air 08/10/24 00:38 93 Room Air Laboratory Results Cardiac Enzymes 08/09/24 Range/Units 14:19 Troponin I High Sens 5.7 D (0-20) pg/ml CBC 08/10/24 Range/Units 05:14 WBC 9.95 (4.8-10.8) K/ul RBC 5.03 (4.70-6.10) M/uL Hgb 14.1 (14.0-18.0) g/dl Hct 42.7 (42.0-52.0) % Plt Count 343 (130-400) K/uL Comprehensive Metabolic Panel 08/10/24 Range/Units 05:14 Sodium 137 (136-145) mmol/L Potassium 4.1 (3.5-5.1) mmol/L Chloride 102 (98-107) mmol/L Carbon Dioxide 29 (21-32) mmol/L BUN 13 (6-23) mg/dl Creatinine 0.68 (0.6-1.4) mg/dl Glucose 130 H (70-99(Fasting)) mg/dl Calcium 9.1 (8.6-10.3) mg/dl Intake and Output 08/09/24 08/10/24 08/10/24 22:59 06:59 14:59 Intake Total 626.100 / 1103.600 250 / 1103.600 Balance 626.100 / 1103.600 250 / 1103.600 Intake: IV 276.100 / 503.600 Heparin 75887 Unit/500 ml D5w 276.100 / 503.600 25,000 units In 500 ml @ 1,900 UNITS/HR 38 mls/hr IV .[id number] [facility] Rx#:[id number] Oral 350 / 600 250 / 600 Other: # Unmeasured Voids 2 Weight 162.7 kg Weight Measurement Method Built in [facility]
--- NOTE | 2024-08-10 13:05 | Hospitalist Progress Note ---
Date of Service August 10, 2024 Assessment & Plan (1) Non-ST elevation MO (NSTEMI): Plan NSTEMI vs. myocardial strain in setting of hypertensive urgency Htn emergency vs. urgency Pt was started on IV heparin in ED, will cont. started losartan for BP control started ASA, metoprolol, statin cont. to monitor closely on telemetry Currently pt is feeling well, chest pain free, no NORWOOD, no shortness of breath Cardiology consulted and discussed with, echo also obtained - per cardiology - " initial concern is that the patient has presented with hypertensive urgency. Troponin however is mildly elevated with relatively flat trend and he did however have chest discomfort. Will work on optimizing blood pressure prior to consideration of further ischemic workup." 08/10 - BP has trended toward improvement on metoprolol succinate 25 mg daily, Losartan 50 mg daily, amlodipine 5 mg daily, spironolactone 12.5 mg daily. Continue aspirin, atorvastatin Plan for 2 day pharm nuclear stress, Day 1 images today, 08/10, Day 2 on 08/11. Hyperglycemia A1c 6.7% - will need to follow up as outpt LDL 130 - started on statin per cardiology DVT ppx - iv heparin -> lovenox Admission and Anticipated Discharge Date Admission Date: August 08, 2024 Subjective Pt seen in follow up of NSTEMI IV heparin started on admission, now stopped Pt seen walking in hallway, denies any chest pain or shortness of breath, denies dizziness, palpitations, lightheadedness, no nausea, or abd. pain, no NORWOOD Pt's mother present and updated Cardiology consulted and following closely - plan for stress test Review of Systems Review of Systems: All systems reviewed & are unremarkable except as noted in Subjective Physical Exam Physical Exam: General: morbidly obese young M in NAD HEENT: NC/AT, EOMI, moist mucous membranes Lungs: clear to auscultation b/l, no wheezing Cardiac Exam: regular heart sounds, no murmurs, no jugular venous distention Abdomen: abdomen soft, non-tender, + obese Extremities: no LE edema, moves extremities Neuro: awake, alert, answers appropriately, no facial asymmetry, moves extr emities Results & Data Results & Data Vital Signs (Past 12 Hours) Vital Signs Temp Pulse Pulse Pulse Resp BP Pulse Ox 08/10/24 12:05 153/84 H 08/10/24 11:52 36.9 C 85 21 187/84 H 94 08/10/24 08:14 36.5 C 74 22 171/84 H 95 08/10/24 08:00 63 08/10/24 03:10 36.9 C 75 20 142/88 H 94 O2 Del Method 08/10/24 12:05 08/10/24 11:52 Room Air 08/10/24 08:14 Room Air 08/10/24 08:00 08/10/24 03:10 Room Air Laboratory Results 08/10/24 08/10/24 08/09/24 Range/Units 05:14 00:01 23:00 WBC 9.95 (4.8-10.8) K/ul RBC 5.03 (4.70-6.10) M/uL Hgb 14.1 (14.0-18.0) g/dl Hct 42.7 (42.0-52.0) % MCV 84.9 (80.0-100.0) fL MCH 28.0 (25.0-34.0) pg MCHC 33.0 (32.0-36.0) g/dL RDW Std Deviation 39.4 (36.4-46.3) fL RDW Coeff of Zackery 12.9 (11.5-14.5) % Plt Count 343 (130-400) K/uL MPV 10.0 (9.4-12.4) fL Heparin Anti-Xa, Unfract < 0.10 L (0.3-0.7) IU/ml Sodium 137 (136-145) mmol/L Potassium 4.1 (3.5-5.1) mmol/L Chloride 102 (98-107) mmol/L Carbon Dioxide 29 (21-32) mmol/L Anion Gap 6 (3-11) BUN 13 (6-23) mg/dl Creatinine 0.68 (0.6-1.4) mg/dl Est Cr Clr Drug Dosing 239.3 ml/min eGFR 127.44 BUN/Creatinine Ratio 19.1 (10-20) Glucose 130 H (70-99(Fasting)) mg/dl Calcium 9.1 (8.6-10.3) mg/dl Phosphorus 4.5 (2.5-4.9) mg/dl Magnesium 2.0 (1.7-2.4) mg/dl Troponin I High Sens (0-20) pg/ml Ur Random Creatinine 198.3 mg/dl U Random Total Protein 14.0 H (0-11.9) mg/dl Protein/Creatinin Ratio 0.1 (0-0.2) 08/09/24 08/09/24 Range/Units 15:43 14:19 WBC (4.8-10.8) K/ul RBC (4.70-6.10) M/uL Hgb (14.0-18.0) g/dl Hct (42.0-52.0) % MCV (80.0-100.0) fL MCH (25.0-34.0) pg MCHC (32.0-36.0) g/dL RDW Std Deviation (36.4-46.3) fL RDW Coeff of Zackery (11.5-14.5) % Plt Count (130-400) K/uL MPV (9.4-12.4) fL Heparin Anti-Xa, Unfract 0.15 L (0.3-0.7) IU/ml Sodium (136-145) mmol/L Potassium (3.5-5.1) mmol/L Chloride (98-107) mmol/L Carbon Dioxide (21-32) mmol/L Anion Gap (3-11) BUN (6-23) mg/dl Creatinine (0.6-1.4) mg/dl Est Cr Clr Drug Dosing ml/min eGFR BUN/Creatinine Ratio (10-20) Glucose (70-99(Fasting)) mg/dl Calcium (8.6-10.3) mg/dl Phosphorus (2.5-4.9) mg/dl Magnesium (1.7-2.4) mg/dl Troponin I High Sens 5.7 D (0-20) pg/ml Ur Random Creatinine mg/dl U Random Total Protein (0-11.9) mg/dl Protein/Creatinin Ratio (0-0.2) Medications Administered Current Inpatient Medications Acetaminophen (Acetaminophen 325 Mg Tab) 650 mg PO Q4H PRN PRN Reason: Pain or Fever Stop: 09/07/24 12:17 Amlodipine Besylate (Amlodipine Besylate 5 Mg Tab) 5 mg PO QAM [facility] Stop: 09/08/24 10:44 Last Admin: 08/10/24 08:25 Dose: 5 mg Aspirin (Aspirin 81 Mg Ectab) 81 mg PO [facility] Stop: 09/08/24 08:59 Last Admin: 08/10/24 08:25 Dose: 81 mg Atorvastatin Calcium (Atorvastatin 40 Mg Tab) 40 mg PO [facility] Stop: 09/08/24 08:59 Last Admin: 08/10/24 08:25 Dose: 40 mg Enoxaparin Sodium (Enoxaparin Inj 40 Mg/0.4 Ml Syr) 40 mg SQ [facility] Stop: 09/09/24 08:59 Last Admin: 08/10/24 08:25 Dose: 40 mg Hydralazine HCl (Hydralazine Hcl 20 Mg/Ml Vial) 10 mg IV Q4H PRN PRN Reason: hypertension Stop: 09/07/24 14:18 Losartan Potassium (Losartan Potassium 50 Mg Tab) 50 mg PO [facility] Stop: 09/07/24 14:29 Last Admin: 08/10/24 08:25 Dose: 50 mg Metoprolol Succinate (Metoprolol Succ 25mg Ext Rel Tab) 25 mg PO [facility] Stop: 09/08/24 08:59 Last Admin: 08/10/24 08:25 Dose: 25 mg Nitroglycerin (Nitroglycerin Sl 0.4 Mg/Tab Tab) 0.4 mg SL Q5M PRN PRN Reason: Chest Pain Stop: 09/07/24 12:17 Spironolactone (Spironolactone 12.5 Mg Tab) 12.5 mg PO DAILY [facility] Stop: 09/08/24 10:44 Last Admin: 08/10/24 08:25 Dose: 12.5 mg Zolpidem Tartrate (Zolpidem Tartrate 5 Mg Tab) 5 mg PO HS PRN PRN Reason: Sleep Stop: 09/07/24 12:17
[2024-08-11 06:38] LABS: Hematocrit (blood only) 43.5 % (42.0-52.0); Hemoglobin 14.6 g/dl (14.0-18.0); Mean Corpuscular Hemoglobin 28.8 pg (25.0-34.0); Mean Corpuscular Hgb Conc 33.6 g/dL (32.0-36.0); Mean Corpuscular Volume 85.8 fL (80.0-100.0); Mean Platelet Volume 10.1 fL (9.4-12.4); Platelet Count 378 K/uL (130-400); RDW Coefficient of Variation 12.8 % (11.5-14.5); RDW Standard Deviation 39.4 fL (36.4-46.3); Red Blood Count 5.07 M/uL (4.70-6.10); White Blood Count 9.18 K/ul (4.8-10.8)
[2024-08-11 07:26] LABS: Calcium 9.2 mg/dl (8.6-10.3); Magnesium 2.1 mg/dl (1.7-2.4); Potassium 4.2 mmol/L (3.5-5.1)
[2024-08-11 07:32] LABS: BUN Creatinine Ratio 18.7 (10-20); Creatinine Clr Calc Pharmacy 214.6 ml/min; Phosphorus 4.3 mg/dl (2.5-4.9)
[2024-08-11 11:45] VITALS: O2SAT 95
--- NOTE | 2024-08-11 12:01 | Myocardial Perfusion Study ---
Date of Service August 11, 2024 Myocardial Perfusion Study [facility] Myocardial Perfusion Study Report Procedure: 1. Myocardial perfusion study performed in multiple views/images 2. Lexiscan pharmacologic stress ECG Indications: 1. chest pain 2. hypertensive urgency 3. mild elevation in troponin level Ordering physician: Zhao Tejada DO Procedural details: For the stress portion of the study, Lexiscan 0.4 mg was intravenously administered followed by a saline flush. This was followed by 24 mCi of technetium 99m Cardiolite, injected at 8:30 am on 08/11/24. 30 minutes following the injection, imaging of the heart was performed in multiple projections. For the rest portion of the study, 24 mCi technetium 99m Cardiolite was injected intravenously at 12:24 pm on 08/10/24. 1 hour following the injection, imaging of the heart was performed in the same projections. Lexiscan stress ECG: A two day rest / pharmacoligic stress protocol was performed. 0.4 mg of IV regadenoson was administered on 08/11/2024 for the stress portion of the study. Resting ECG demonstrated: Sinus rhythm in the 80s, normal ST segments Maximum heart rate: 118 bpm Maximal, age-predicted heart rate: 62% Resting blood pressure: 150/95 mmHg Maximum blood pressure: 161/[address] changes: No significant ST segment changes Arrhythmia: None Symptoms: Transient shortness of breath was reported with regadenoson administration. No chest discomfort reported. Symptoms resolved in the post- rest recovery interval having received diet caffeinated cola Findings: Rotating raw imaging demonstrated no significant lung uptake. Images were technically limited due to patient characteristics despite two day progotocol Stress myocardial perfusion images revealed a small apical perfusion defect. Restng myocardial perfusion images reveal normal perfusion. The SPECT images are technically limited due to few counts. The wall motion cannot be assessed. The ejection fraction cannot be reliably calculated. Impression: 1. Technically limited study revealing a small reversible apical perfusion defect that is felt to likely be artifactual. The remaining perfusion is normal. 2. Test is felt to represent a low likelihood of hemodynamically significant coronary heart disease.
--- NOTE | 2024-08-11 12:12 | Cardiology Progress Note ---
Date of Service August 11, 2024 Assessment & Plan (1) Hypertensive urgency: Plan: Nuclear stress test was technically limited, but reassuring. Medication management recommended. Patient stable for discharge on the following: Aspirin 81 mg daily Metoprolol succinate 25 mg daily Losartan 50 mg daily Amlodipine 5 mg daily Spironolactone 25 mg daily New diagnosis of type 2 diabetes noted, hemoglobin A1c 6.7%. Will need to establish with a primary care provider with regards to follow-up. Nocturnal pulse oximetry performed overnight revealed 20 desaturation events of pulse oximetry level of less than 88% with desaturation index of events per hour of 3.02. Patient will likely need outpatient assessment for sleep apnea. Future considerations include outpatient referral to nutrition and weight management. Recommend outpatient cardiology follow-up which will be arranged. Recommend patient remains off of work until Friday, and that he returns to the emergency department should he experience any recurrent symptoms of exertional chest discomfort. Admission and Anticipated Discharge Date Admission Date: August 08, 2024 Subjective Patient seen in follow up prior to, during and after pharmacologic stress test today. No chest pain since initial presentation to the hospital. Patient ambulated in the ta yesterday and felt well. BP trending toward improvement. Telemetry reveals SR in the 80s. Review of Systems Review of Systems: All systems reviewed & are unremarkable except as noted in HPI & below Physical Exam Physical Exam: Temp Pulse Resp BP Pulse Ox O2 Del Method 36.7 C 90 19 181/83 H 95 Room Air 08/11/24 11:42 08/11/24 11:42 08/11/24 11:42 08/11/24 11:42 08/11/24 11:42 08/11/24 11:42 General: no acute distress and stated age Eyes: conjunctiva are pink and non-injected, sclera clear Neck: normal jugular venous pulse, no hepatojugular reflux Chest: normal shape and normal respiratory effort Lungs: clear to auscultation and percussion Cardiac Exam: - regular heart sounds, no murmurs, rubs, or gallops, no jugular venous distention Abdomen: abdomen soft, non-tender, no abnormal masses and no hepatosplenomegaly Musculoskeletal: no gait disturbance, no weakness Extremities: no edema and no cyanosis Neuro:awake, conversant, follows commands, no focal motor deficits Psych: appropriate affect and insight. Results & Data Vital Signs (Past 12 Hours) Vital Signs Temp Pulse Pulse Pulse Pulse Resp BP 08/11/24 11:42 36.7 C 90 19 181/83 H 08/11/24 07:01 67 08/11/24 03:34 73 08/11/24 02:30 36.6 C 67 21 140/70 08/11/24 00:14 36.7 C 80 22 143/79 H Pulse Ox Pulse Ox O2 Del Method O2 Del Method 08/11/24 11:42 95 Room Air 08/11/24 07:01 08/11/24 03:34 91 Room Air 08/11/24 02:30 96 Room Air 08/11/24 00:14 95 Room Air Laboratory Results CBC 08/11/24 Range/Units 06:12 WBC 9.18 (4.8-10.8) K/ul RBC 5.07 (4.70-6.10) M/uL Hgb 14.6 (14.0-18.0) g/dl Hct 43.5 (42.0-52.0) % Plt Count 378 (130-400) K/uL Comprehensive Metabolic Panel 08/11/24 Range/Units 06:12 Sodium 138 (136-145) mmol/L Potassium 4.2 (3.5-5.1) mmol/L Chloride 103 (98-107) mmol/L Carbon Dioxide 30 (21-32) mmol/L BUN 14 (6-23) mg/dl Creatinine 0.75 (0.6-1.4) mg/dl Glucose 116 H (70-99(Fasting)) mg/dl Calcium 9.2 (8.6-10.3) mg/dl
[2024-08-11] MEDS: REGADENOSON 0.4 MG/5 ML SYR IV ONE (12:21)
[2024-08-11] MEDS: SPIRONOLACTONE 25 MG TAB PO SCH (12:21)
--- NOTE | 2024-08-11 15:07 | Discharge Summary ---
Discharge Summary Date of Service August 11, 2024 Principal Dx & Hospital Course #1 = Principal Diagnosis (1) Non-ST elevation DE (NSTEMI): Plan NSTEMI vs. myocardial strain in setting of hypertensive urgency Htn emergency vs. urgency Pt was started on IV heparin in ED, will cont. started losartan for BP control started ASA, metoprolol, statin cont. to monitor closely on telemetry Currently pt is feeling well, chest pain free, no [place], no shortness of breath Cardiology consulted and discussed with, echo also obtained - per cardiology - " initial concern is that the patient has presented with hypertensive urgency. Troponin however is mildly elevated with relatively flat trend and he did however have chest discomfort. Will work on optimizing blood pressure prior to consideration of further ischemic workup." 08/10 - BP has trended toward improvement on metoprolol succinate 25 mg daily, Losartan 50 mg daily, amlodipine 5 mg daily, spironolactone 12.5 mg daily. Continue aspirin, atorvastatin Plan for 2 day pharm nuclear stress, Day 1 images today, 08/10, Day 2 on 08/11. Hyperglycemia A1c 6.7% - will need to follow up as outpt LDL 130 - started on statin per cardiology DVT ppx - iv heparin -> lovenox Notes For Next Care Provider Needs sleep apnea testing Needs outpt nutrition and weight management testing Cardiology followup Per cardiology- off from work until 08/16/24 Medication Changes From Visit Aspirin 81 mg daily Metoprolol succinate 25 mg daily Losartan 50 mg daily Amlodipine 5 mg daily Spironolactone 25 mg daily Admission HPI Per Admitting Provider 29M pmh morbid obesity who presents to the ED with chest pain. Patient states 2 days ago he awoke with chest pain, which lasted around 1-5 minutes and self-resolved. This occured twice more in the last two days, once exertionally, another time non-exertionally and as a result he presented to the hospital. These episodes have never occured before, and he has never seen a ca rdiologist before for any reason. He has no known fhx of cardiac dx, no current drug use. No palpitations, sob, fever, chills, other symptoms currently. Updated Medication List Medication Instructions Recorded Confirmed Type amlodipine 5 mg tablet (Norvasc) 5 mg PO QAM #30 tabs 08/11/24 Rx aspirin 81 mg tablet,delayed 81 mg PO QAM #30 tabs 08/11/24 Rx release losartan 50 mg tablet 50 mg PO QAM #30 tabs 08/11/24 Rx metoprolol succinate 25 mg 25 mg PO QAM #30 tabs 08/11/24 Rx tablet,extended release 24 hr spironolactone 25 mg tablet 25 mg PO DAILY #30 tabs 08/11/24 Rx Hospital Stay Data Consultations 08/08/24 11:39 ED Decision to Admit Stat 08/08/24 12:18 Consult Cardiology Routine Discharge Instructions Given to Patient (Per Discharging Provider) [facility] 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 Please take them as prescribed. You will also need further evaluation for sleep apnea and further evaluation by Nutrition and Weight Management. We have set you up with a primary care provider who will help with your referrals as needed. Please keep close followup with Cardiology as scheduled. Please keep close follow up with your primary care provider after discharge. Please do not hesitate to come back to the emergency room if your symptoms worsen or return. It was a pleasure taking care of you while you were here. Total Time Total Time Spent Total Time Spent (In Minutes): 60
[2024-08-11 15:25] VITALS: BP 170/81; PULSE 85; RESP 20; TEMP 98.2
== END 2024-08-11 16:02 | disposition home or self-care (01) | DRG 281 ==
LOC: ED 08:12 → 4W 12:18 → SUATTDRO 12:18 → 4W 13:15